=== PATIENT | female | born 1975 | race Caucasian/White ===

== ENCOUNTER 2025-07-25 15:56 | Emergency (ER) | payer OTHER ==
[2025-07-25 16:29] VITALS: RESP 19; BMI 25.3
[2025-07-25] MEDS ORDERED: ACETAMINOPHEN INJECTION 100 ML ONE (16:42)
[2025-07-25] MEDS: ACETAMINOPHEN 1000 MG/100 ML BAG IVPB ONE (17:03)
[2025-07-25 17:31] LABS: MCHC 30.3 g/dl (32.2-35.5); MEAN CELL VOLUME 59.9 fl (79.4-94.8); MEAN PLT VOLUME 8.7 fl (9.4-12.3); RDW 17.5 % (12.3-16.6)
[2025-07-25 17:38] LABS: INR 1.25 (0.83-1.09); PROTHROMBIN TIME (PATIENT) 13.7 SEC (9.7-13.0)
[2025-07-25 17:40] LABS: ACTIVATED PTT 34.6 SECONDS (25.2-36.5)
[2025-07-25 17:45] VITALS: BP 163/97; PULSE 103; TEMP 98.4
[2025-07-25 17:49] LABS: GLUCOSE,RANDOM 114.0 mg/dL (74-106)
[2025-07-25 17:50] LABS: TOT PROT 8.2 g/dl (6.4-8.2)
[2025-07-25 17:51] LABS: CO2 22.0 mmol/L (21-32)
[2025-07-25 17:53] LABS: ALK PHOS 148.0 U/L (40-150)
[2025-07-25 17:55] LABS: CREATININE 0.39 mg/dL (0.55-1.3); SGOT/AST 56.0 U/L (5-34); SGPT/ALT 24.0 U/L (0-55)
[2025-07-25 18:19] LABS: HCV DIAGNOSTIC IN-HOUSE W/RFLX NON-REACTIVE (NONREACTIVE); HIV INTERPRETATION NEGATIVE (NEGATIVE)
[2025-07-25] MEDS: MAGNESIUM 1GM/D5W - 1 GM/100 ML IVPB IVPB ONE (18:39)
== END 2025-07-25 18:44 | disposition home or self-care (01) ==
LOC: JER 15:56
DX: M54.2 Cervicalgia (principal); R20.2 Paresthesia of skin; R29.898 Other symptoms and signs involving the musculoskeletal system; R00.0 Tachycardia, unspecified; R07.9 Chest pain, unspecified
CPT/HCPCS: 36415; 71046-TC-FY; 80053; 83735; 84484; 85027; 85610; 85730; 86803; 87389; 93005; 93010; 99285-25